=== PATIENT | female | born 1990 | race African-American/Black ===

== ENCOUNTER 2024-02-21 20:12 | Emergency (ER) | payer MEDICAID ==
[~2024-02-21] VITALS: Ht 162.6 cm; Wt 90.2 kg
[2024-02-21] MEDS: KETOROLAC 30MG/ML VIAL IV STA (23:29)
[2024-02-21] MEDS: SODIUM CHLORIDE 0.9% 1000ML BAG (SEPSIS BOLUS) IV ONE (23:29)
[2024-02-21] MEDS: PIPERACILLIN/TAZO 3.375G/50ML 50 ML IV ONE (23:29)
[2024-02-21] MEDS: ACETAMINOPHEN 325MG TABLET PO STA (23:30)
[2024-02-21 23:34] LABS: BASOPHILS % 0.7 % (0.0-2.0); DIFFERENTIAL COMMENT 0; EOSINOPHILS % 0.4 % (0.0-5.0); HEMATOCRIT. 39.3 % (36.0-48.0); HEMOGLOBIN. 12.4 g/dL (12.0-16.0); LYMPHOCYTES % 25.6 % (20.0-50.0); MEAN CORPUSCULAR HEMOGLOBIN 22.5 pg (28.0-32.0); MEAN CORPUSCULAR HGB CONC 31.7 g/dL (31.0-37.0); MEAN PLATELET VOLUME 9.8 fl (7.4-10.4); MONOCYTES % 12.2 % (2.0-8.0); NEUTROPHILS % 61.1 % (40.0-76.0); PLATELET 169 x1000/uL (130-400); RED BLOOD CELL COUNT 5.53 mill/uL (4.2-5.4); RED CELL DISTRIBUTION WIDTH 14.4 % (11.6-14.6); WHITE BLOOD COUNT 5.2 x1000/uL (4.5-11.0)
[2024-02-21 23:40] VITALS: PULSE 109; RESP 18; O2SAT 98
[2024-02-21 23:45] LABS: PROTHROMBIN TIME 11.1 sec (9.6-11.0)
[2024-02-21 23:50] LABS: ALANINE AMINOTRANSFERASE 59 IU/L (10-49); ALBUMIN 4.7 g/dL (3.2-4.8); ASPARTATE AMINOTRANSFERASE 40 IU/L (<34); BILIRUBIN TOTAL 0.4 mg/dL (0.1-1.0); CALCIUM 8.9 mg/dL (8.7-10.4); CARBON DIOXIDE 22 mEq/L (21-32); CHLORIDE 108 mEq/L (98-107); CREATININE 0.9 mg/dL (0.6-1.0); GLUCOSE 118 mg/dL (70-105); POTASSIUM 3.9 mEq/L (3.5-5.1); PROTEIN TOTAL 8.1 g/dL (6.0-8.3); SODIUM 138 mEq/L (136-145); UREA NITROGEN BLOOD 8 mg/dL (9-23)
[2024-02-21] MEDS: ALBUTEROL (0.083%) 2.5MG/3ML NEB HHN STA (23:57)
[2024-02-22 00:02] LABS: HCG SCREEN NEGATIVE; TROPONIN I HIGH SENSITIVITY < 4 ng/L (3.0-34)
[2024-02-22] MEDS: VANCOMYCIN 1G PREMIX 200 ML IV ONE (00:02)
[2024-02-22 00:44] LABS: CLARITY URINE CLEAR (CLEAR); COLOR URINE YELLOW (YELLOW); GLUCOSE URINE NEGATIVE (NEGATIVE); KETONES URINE NEGATIVE (NEGATIVE); LEUKOCYTE ESTERASE URINE NEGATIVE (NEGATIVE); NITRITE URINE NEGATIVE (NEGATIVE); OCCULT BLOOD URINE NEGATIVE (NEGATIVE); PH URINE 5.5 (4.5-8.0); PROTEIN URINE NEGATIVE (NEGATIVE); SPECIFIC GRAVITY URINE 1.012 (1.005-1.030); UROBILINOGEN URINE 0.2 E.U./dL (0.2-1.0)
[2024-02-22] MEDS: IOHEXOL-300 100 ML BOTTLE ONE (01:47)
[2024-02-22 01:55] VITALS: BP 133/81; PULSE 96; RESP 18; TEMP 98.3
[2024-02-22] MEDS ORDERED: IBUP-2028 MT (02:50)
[2024-02-22] MEDS ORDERED: TAM75 MT (02:50)
== END 2024-02-22 04:12 | disposition home or self-care (01) ==
LOC: ER 20:12
DX: J10.1 Influenza due to other identified influenza virus with other respiratory manifestations (principal); E86.0 Dehydration; J04.0 Acute laryngitis; Z20.822 Contact with and (suspected) exposure to COVID-19
CPT/HCPCS: 80053; 84703; 87430; 83605; 85025; 85610; 87040; 84484; 87070; 87804 ×2; 36415; 84145; 71045; 94640; 93005; 96367; 96375; 99285; 87426; 81003; 87086; 70491; 96365; 96366; J1885; J2543; J3370; Z7610 ×3; J7030; Q9967